=== PATIENT | female | born 1955 | race Hispanic/Latino ===

== ENCOUNTER 2017-11-10 06:55 | Day surgery (SDC) | payer OTHER ==
[2017-11-10] MEDS ORDERED: NACL 0.9% 500 ML 500 ML IV SCH (08:00)
[2017-11-10 08:24] LABS: BUN/Creatinine Ratio 12; Blood Urea Nitrogen 6 mg/dL (7-17); Calcium 8.1 mg/dL (8.4-10.2); Hemolysis Index 5
[2017-11-10 08:37] LABS: INR 0.9 (0.87-1.13)
[2017-11-10 08:45] LABS: Hematocrit 31.2 % (30.3-42.9); Hemoglobin 10.4 gm/dl (10.1-14.3); Mean Corpuscular HGB Conc 33 % (30-34); Mean Corpuscular Hemoglobin 37 pg (28-32); Platelet Count 112 K/mm3 (140-440); Red Blood Count 2.81 M/mm3 (3.65-5.03)
[2017-11-10 08:51] LABS: Mean Corpuscular Volume 111 fl (79-97); Red Cell Distribution Width 20.4 % (13.2-15.2)
[2017-11-10] MEDS ORDERED: HEPARIN/NS 5000 UNIT/500ML(CATH LAB) 1,000 ML IR ONE (10:11)
[2017-11-10] MEDS ORDERED: HEPARIN 10,000 UNITS/10 ML ONE (10:11)
[2017-11-10] MEDS ORDERED: XYLOCAINE 2% INFILTRATI ONE (10:12)
[2017-11-10] MEDS ORDERED: SUBLIMAZE ONE (10:12)
[2017-11-10] MEDS ORDERED: NITROGLYCERIN SYRINGE 3 ML ONE (10:12)
[2017-11-10] MEDS ORDERED: VERSED ONE (10:12)
[2017-11-10] MEDS ORDERED: CALAN ONE (10:12)
[2017-11-10 10:16] LABS: Basophils % (Manual) 0 % (0.0-1.8); Total Cells Counted 100
[2017-11-10 10:17] LABS: Anisocytosis 1+; Macrocytosis 1+
[2017-11-10 10:18] LABS: Poikilocytosis Few
--- NOTE | 2017-11-10 10:58 | Discharge Summary ---
Short Stay Discharge Plan Activity: advance as tolerated Weight Bearing Status: Full Weight Bearing Diet: low fat, low cholesterol, low salt Wound: keep clean and dry Special Instructions: no heavy lifting (3 days) Follow up with: ABELARDO MELENDEZ MD [Primary Care Provider] - 7 Days PENNY JAVED MD [Staff Physician] - 7 Days
[2017-11-10] MEDS ORDERED: NACL 0.9% 1000 ML 1,000 ML IV SCH (11:00)
--- NOTE | 2017-11-10 11:15 | Cardiac Catherization Report ---
CARDIAC CATHETERIZATION REASON FOR PROCEDURE: Chest pain,recurrent chest pain despite negative noninvasive testing. The patient was referred for cardiac catheterization. PROCEDURE: The patient was prepped and draped in a sterile fashion after informed consent. The right radial cath site was prepped and draped after a negative Mike's test. Right radial artery was entered using Seldinger technique followed by placement of a 6-Portuguese hydrophilic sheath. Routine radial cocktail was administered via the sheath. Left coronary angiography was performed using a #3.5 left Milana catheter. A #4 right Milana was used for right coronary angiography. A pigtail was used for left ventricle angiography. The catheters were then removed, sheath removed and hemostasis achieved using an Angio-Seal device. The patient was returned to the postprocedure unit in stable condition. There were no complications. FINDINGS: HEMODYNAMICS: Left ventricular end diastolic pressure was 21, following coronary angiography. Ascending aortic pressure was 143/82. There was no significant pressure gradient on pullback across the aortic valve. CORONARY ANGIOGRAPHY: The left main coronary artery was short, and angiographically normal. The left anterior descending artery and its diagonal branches were angiographically normal. The circumflex artery and its obtuse marginal branches were angiographically normal. The right coronary artery was dominant and similarly angiographically normal. Left ventricular systolic function was at lower limits of normal, ejection fraction 50-55%. CONCLUSION: 1. Angiographically normal coronary arteries. 2. Left ventricular systolic function at the lower limits of normal, ejection fraction 50-55%. RECOMMENDATION: Risk factor modification and medical therapy. JOB# [id number] CASSIE/HUNTER AIKEN
[2017-11-10 14:40] VITALS: BP 118/73
== END 2017-11-10 15:00 | disposition home or self-care (01) ==
LOC: CATHLABREC 06:55
PROVIDERS: ATTEND Internal Medicine Cardiovascular Disease
DX: R07.89 Other chest pain (principal); I10 Essential (primary) hypertension; M32.9 Systemic lupus erythematosus, unspecified; F17.210 Nicotine dependence, cigarettes, uncomplicated; Z79.82 Long term (current) use of aspirin; Z79.899 Other long term (current) drug therapy
CPT/HCPCS: 36415; 80048; 85007; 85025; 85610; 85730; 93005; 93010; 93458; 99156; 99157; C1769; C1894; J1644; J2250; J3010; J7040; Q9967